=== PATIENT | male | born 1950 | race Caucasian/White ===

== ENCOUNTER 2016-06-27 14:24 | Outpatient (CLI) | payer MEDICARE, OTHER | END 2016-06-27 14:25 | disposition home or self-care (01) | DX: I49.01 Ventricular fibrillation (principal); D62 Acute posthemorrhagic anemia; Z79.01 Long term (current) use of anticoagulants; Z95.810 Presence of automatic (implantable) cardiac defibrillator; I48.0 Paroxysmal atrial fibrillation; F10.220 Alcohol dependence with intoxication, uncomplicated; I48.91 Unspecified atrial fibrillation ==

== ENCOUNTER 2016-08-20 08:49 | Outpatient (CLI) | payer MEDICARE, OTHER | END 2016-08-20 08:50 | disposition EMS.NT | CPT/HCPCS: A0425; A0429 ==